=== PATIENT | female | born 2005 | race Caucasian/White ===

== ENCOUNTER 2024-01-30 16:35 | Emergency (ER) | payer OTHER, SELFPAY ==
--- NOTE | ~2024-01-30 | XR_ITS ---
EXAM: XR wrist RT min 3V DATE: 01/30/2024 17:13 HISTORY: pain, swelling . COMPARISON: None available. FINDINGS: Normal mineralization. No fracture or dislocation. No lytic or blastic lesion. Joint space s are maintained. No erosion or periosteal change. Soft tissues within normal limits. IMPRESSION: No acute osseous finding in the right wrist. Reviewed, dictated and finalized at location K.
[2024-01-30 16:53] VITALS: BP 149/80; PULSE 78; RESP 18; TEMP 36.4; O2SAT 99
--- NOTE | 2024-01-30 17:30 | ED.UPPEXIN ---
HPI - Extremity Injury (Upper) General Chief Complaint: Extremity Injury, Upper Stated Complaint: R wrist injury Time Seen by Provider: 01/30/24 17:30 Source: patient Mode of arrival: ambulatory Limitations: no limitations History of Present Illness HPI narrative: Belén is a 18-year-old female patient presenting to the ER today with complaints of right wrist pain. 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 Does not report any numbness or tingling in her hand. States that is sore over her thumb and across her wrist. No known injury Related Data Allergies Allergy/AdvReac Type Severity Reaction Status Date / Time Penicillins Allergy Unknown Verified 01/30/24 16:36 Review of Systems Review of Systems: Pertinent positives per HPI. Patient denies any fever, chills, rash, headache, visual changes, dizziness, cough, runny nose, sore throat, shortness of breath, chest pain, palpitations, nausea, vomiting, diarrhea, constipation, abdominal pain, or any urinary issues. PMFSH Comments At the time of my signature, I reviewed and agree with the nursing past medical, surgical, social, and family history. There is no relevant family history pertinent to the patient complaint. Exam Narrative: General: Well-developed, well nourished, in no apparent distress Head: Normocephalic, atraumatic. Cardio: Regular rate and rhythm, s1 and s2 normal, no murmur appreciated. Resp: Clear to auscultation bilaterally, no rhonchi, rales, wheezing or rubs. Musculoskeletal: No deformity, tender to palpation over the anterior and posterior wrist, pain with flexion and extension of the right wrist, Bridget positive, right wrist ocean rescue lieutenant weaker than the left wrist, Tinel's and the right wrist is negative, negative Phalen's, grossly normal range of motion, muscle strength strong and equal, peripheral pulse strong, no edema, no cyanosis, normal gait and station Course Course Emergency Course: Portions of this record may have been created with voice recognition software. Vital Signs Vital signs: Vital Signs Temperature 36.4 C 01/30/24 16:53 Pulse Rate 78 01/30/24 16:53 Respiratory Rate 18 01/30/24 16:53 Blood Pressure 149/80 H 01/30/24 16:53 Pulse Oximetry 99 01/30/24 16:53 Oxygen Delivery Room Air 01/30/24 16:53 Temperature 36.4 C 01/30/24 16:53 Pulse Rate 78 01/30/24 16:53 Respiratory Rate 18 01/30/24 16:53 Blood Pressure 149/80 H 01/30/24 16:53 Pulse Oximetry 99 01/30/24 16:53 Oxygen Delivery Room Air 01/30/24 16:53 Vital signs reviewed MDM - Extremity Injury (Upper) MDM Narrative Medical decision making narrative: At the time of visit patient is resting comfortably on the exam table. Patient appears to be nontoxic. Diagnostics: X-ray of the right wrist was negative for any sign of fracture or malalignment. Plan: I suspect patient has right wrist tendinitis. Supportive measures were discussed with the patient and they voiced understanding discharge instructions and agrees to treatment plan. Return precautions reviewed Differential Diagnosis Differential diagnosis: Likely sprain and strain of wrist, fracture of wrist and other (Wrist tendinitis, de Quervain tenosynovitis) Discharge Plan Discharge Clinical Impression: Right wrist tendinitis Patient Disposition: Home, Self-Care Condition: Stable Instructions: Antibiotic Form, Tendinitis (ED) Additional Instructions: X-ray of the right wrist is negative for any sign of fracture or malalignment. Rest, ice, elevate, and wear judi wrap as directed May wear a cock-up wrist splint at nighttime Tylenol/motrin for pain as discussed. May apply Voltaren cream 4 times a day to the affected area to help alleviate pain Follow up with your PCP if symptoms persist more than 1 week. Follow-up/Referrals: PHYSICIAN NOT ON STAFF,NONSTAFF [Primary Care Provider] - Time of Dispos
== END 2024-01-30 18:52 | disposition home or self-care (01) ==
LOC: ANHED 18:11
PROVIDERS: Emergency Provider Nurse Practitioner Family
DX: M77.8 Other enthesopathies, not elsewhere classified (principal)
CPT/HCPCS: 73110; 99283

== ENCOUNTER 2024-12-27 15:51 | Emergency (ER) | payer OTHER, SELFPAY ==
[2024-12-27 15:56] VITALS: BP 152/82; PULSE 90; RESP 18; TEMP 36.6; O2SAT 100
--- NOTE | 2024-12-27 16:47 | ED.LOWEXIN ---
HPI - Extremity Injury (Lower) General Chief Complaint: Extremity Injury, Lower Stated Complaint: left foot injury Time Seen by Provider: 12/27/24 16:47 Focused HPI: This is a 19 year old female that presents to the ER for left foot pain. Reports she fell and rolled her left ankle. Reports swelling and pain. Denies decreased ROM or numbness. GENERAL: Well-appearing, well-nourished, and in no acute distress. HEAD: Normocephalic, atraumatic. CHEST: Clear to auscultation. ?No respiratory distress. HEART: Regular rate and rhythm.? NEURO: ?Alert and oriented x3. Patient screened in triage and initial orders placed.? ?Additional care and disposition to be based upon?diagnostic testing and treatment. Related Data Allergies Allergy/AdvReac Type Severity Reaction Status Date / Time Penicillins Allergy Unknown Verified 12/27/24 15:51 Review of Systems Review of Systems: CONSTITUTIONAL: Denies fever MUSCULOSKELETAL: Reports joint pain, and myalgia. NEUROLOGIC: Denies numbness, or weakness. All systems reviewed & are unremarkable except as noted in HPI and below PMFSH Past Medical History Medical History (Updated 12/27/24 @ 18:01 by Pretty Kay PA-C) No active medical problems Social History Social History (Updated 12/27/24 @ 18:00 by Pretty Kay PA-C) Substance use: never Exam Narrative: GENERAL: Well-appearing, well-nourished, and in no acute distress. HEAD: Normocephalic, atraumatic. EYES: EOMI. EXTREMITIES: Normal range of motion. No edema or obvious deformity. Normal DP pulse. Normal sensation SKIN: Warm, dry, no rash. NEURO: No focal deficits. Alert and oriented x3. PSYCH: Normal mood and affect Course Vital Signs Vital signs: Vital Signs Temperature 97.8 F 12/27/24 15:56 Pulse Rate 90 12/27/24 15:56 Respiratory Rate 18 12/27/24 15:56 Blood Pressure 152/82 H 12/27/24 15:56 Pulse Oximetry 100 12/27/24 15:56 Oxygen Delivery Room Air 12/27/24 15:56 Temperature 97.8 F 12/27/24 15:56 Pulse Rate 90 12/27/24 15:56 Respiratory Rate 18 12/27/24 15:56 Blood Pressure 152/82 H 12/27/24 15:56 Pulse Oximetry 100 12/27/24 15:56 Oxygen Delivery Room Air 12/27/24 15:56 MDM - Extremity Injury (Lower) MDM Narrative Medical decision making narrative: patient presents to the emergency department for left ankle pain. She is neurovascularly intact. Left ankle x-ray without acute osseous abnormalities. Patient placed in [place] wrap and given crutches. Instructed on further care of ankle sprain. She is to follow up with primary provider. She was given warnings to return to the ER Differential Diagnosis Differential diagnosis: Likely ankle sprain and strain and ankle fracture Imaging Data Radiologist's impression: ITS Impressions Ankle X-Ray 12/27/24 17:12 IMPRESSION: No definite acute osseous abnormality left ankle. . If the Symptoms continue, repeat exam in 10 days is advised. Critical Care Time Critical Care Time Critical Care Time: No Discharge Plan Discharge Clinical Impression: Ankle sprain and strain Patient Disposition: Home, Self-Care Condition: Stable Instructions: Ankle Sprain (ED) Additional Instructions: Return to the ER if you experience fever, redness and swelling of your extremity, numbness or any other symptoms that are concerning to you Wear [place] wrap and use crutches. No weight on the affected leg until able to bear weight without pain. Ice and elevate extremity. Pain medication as needed and directed. Follow up with your doctor for further care. Patient Language: Russian Follow-up/Referrals: UNKNOWN,DOCTOR [Primary Care Provider] -
== END 2024-12-27 18:07 | disposition home or self-care (01) ==
LOC: ANHED 18:16
PROVIDERS: Emergency Provider Physician Assistant; PCP Nurse Practitioner Family
DX: S93.402A Sprain of unspecified ligament of left ankle, initial encounter (principal); S96.912A Strain of unspecified muscle and tendon at ankle and foot level, left foot, initial encounter; X50.9XXA Other and unspecified overexertion or strenuous movements or postures, initial encounter
CPT/HCPCS: 73610; 99283